=== PATIENT | male | born 1945 | race Caucasian/White ===

== ENCOUNTER → 2016-04-26 | Outpatient (CLI) | payer OTHER | END | disposition home or self-care (01) | LOC: NUC 08:25 | DX: R93.1 Abnormal findings on diagnostic imaging of heart and coronary circulation (principal); Z76.82 Awaiting organ transplant status | CPT/HCPCS: 78452; 93017; A9500; J2785 ==

== ENCOUNTER → 2017-05-02 | Outpatient (CLI) | payer OTHER | END | disposition home or self-care (01) | LOC: NUC 04-25 08:30 | DX: Z01.810 Encounter for preprocedural cardiovascular examination (principal); Z76.82 Awaiting organ transplant status; I05.1 Rheumatic mitral insufficiency; I07.1 Rheumatic tricuspid insufficiency; I05.8 Other rheumatic mitral valve diseases; I51.7 Cardiomegaly; I87.8 Other specified disorders of veins; R94.31 Abnormal electrocardiogram [ECG] [EKG] | CPT/HCPCS: 78452; 93017; 93306; A9500; J2785 ==

== ENCOUNTER 2017-07-11 05:39 | Day surgery (SDC) | payer OTHER ==
[~2017-07-11] VITALS: Ht 180.3 cm; Wt 107.0 kg
[~2017-07-11 05:39] MED LIST: CALPHRON667 MG PO; CELLCEPT500 MG PO; CYMBALTA60 MG PO; KAYEXALATE15 GM/60 M PO; LIPITOR80 MG PO; MIRALAX17 GM PO; NOVOLOG PE100 UNITS/ SC; PROTONIX40 MG PO; RAPAMUNE1 MG PO; RAYOS5 MG PO; SENSIPAR30 MG PO; SYNTHROID75 MCG PO; TRESIBA FL200 UNIT/1 SC; ZYLOPRIM100 MG PO
[2017-07-11 06:26] VITALS: BP 116/70
[2017-07-11 06:41] LABS: HEMATOCRIT 40.7 % (38.0-50.0); HEMOGLOBIN 12.6 G/DL (12.5-16.6); MCH 27.1 PG (29.0-34.0); MCV 87.5 FL (86-99); PLATELET COUNT 265 K/uL (156-360); RBC DIS.WIDTH-CV 14.3 % (11.8-14.6); RBC DIS.WIDTH-SD 45.6 % (39-53); RED BLOOD COUNT 4.65 M/uL (4.00-5.50); WHITE BLOOD COUNT 12.8 K/uL (4.1-10.2)
[2017-07-11 07:02] LABS: CHLORIDE 94 MEQ/L (99-109); CREATININE 5.5 MG/DL (0.6-1.3); GFR ESTIMATE (CALCULATED) 11 mL/min/ (58.99-99999); GLUCOSE 179 mg/dL (70-99); SODIUM 136 MEQ/L (136-147); UREA NITROGEN (BUN) 52 mg/dL (9-23)
[2017-07-11 07:03] LABS: POTASSIUM 6.8 MEQ/L (3.7-5.4)
[2017-07-11 11:01] LABS: CHLORIDE 94 MEQ/L (99-109); CREATININE 5.5 MG/DL (0.6-1.3); GFR ESTIMATE (CALCULATED) 11 mL/min/ (58.99-99999); GLUCOSE 203 mg/dL (70-99); SODIUM 139 MEQ/L (136-147); UREA NITROGEN (BUN) 54 mg/dL (9-23)
[2017-07-11 15:57] VITALS: BP 140/71
[2017-07-11 16:37] VITALS: BP 142/75
== END 2017-07-11 16:35 | disposition home or self-care (01) ==
LOC: SDC 05:39
PROVIDERS: Surgery
DX: T82.858A Stenosis of other vascular prosthetic devices, implants and grafts, initial encounter (principal); Y83.2 Surgical operation with anastomosis, bypass or graft as the cause of abnormal reaction of the patient, or of later complication, without mention of misadventure at the time of the procedure; Z94.4 Liver transplant status; I12.0 Hypertensive chronic kidney disease with stage 5 chronic kidney disease or end stage renal disease; E11.22 Type 2 diabetes mellitus with diabetic chronic kidney disease; N18.6 End stage renal disease; Z99.2 Dependence on renal dialysis; E78.5 Hyperlipidemia, unspecified; K76.9 Liver disease, unspecified; E07.9 Disorder of thyroid, unspecified; K75.9 Inflammatory liver disease, unspecified; Z79.82 Long term (current) use of aspirin
CPT/HCPCS: 80048; 80048 91; 82948; 84132 91; 85027; C1725; C1769; C1894; J0131; J0610; J0690; J1644; J7050